=== PATIENT | female | born 1980 | race Caucasian/White ===

== ENCOUNTER 2018-02-25 06:12 | Day surgery (SDC) | payer BC ==
[~2018-02-25 06:12] MED LIST: CEFAZOLIN 2 GM/50 ML (PMX) 50 ML IVPB; LACTATED RINGER'S 1,000 ML IV*
[2018-02-25] MEDS ORDERED: PROPOFOL 20 ML (07:48)
[2018-02-25] MEDS ORDERED: ROCURONIUM 50 MG INJ (07:48)
[2018-02-25] MEDS ORDERED: FENTAnyl 50 MCG/ML VIAL (07:48)
[2018-02-25] MEDS ORDERED: MIDAZOLAM 1 MG/ML 2 ML INJ (07:48)
[2018-02-25] MEDS ORDERED: LIDOCAINE 1% (MDV) 20 ML INJ (07:49)
[2018-02-25] MEDS ORDERED: ROPIVACAINE 0.5 % 30 ML VIAL (07:53)
[2018-02-25] MEDS ORDERED: FAMOTIDINE 20 MG INJ (08:08)
[2018-02-25] MEDS ORDERED: ONDANSETRON 4 MG INJ (08:08)
[2018-02-25] MEDS ORDERED: DEXAMETHASONE 4 MG/ML 1 ML INJ (08:08)
[2018-02-25] MEDS ORDERED: CEFAZOLIN 1 GM INJ (08:08)
[2018-02-25] MEDS: BUPIVACAINE 0.25%/EPI (SDV) 30 ML INJ (08:50)
[2018-02-25] MEDS ORDERED: SUGAMMADEX SODIUM 200 MG/2 ML VIAL IV (09:06)
[2018-02-25] MEDS ORDERED: KETOROLAC 30 MG INJ (09:07)
[2018-02-25] MEDS ORDERED: HYDROmorphONE 1 MG/5 ML IV SYRINGE IV ×2 (10:00→10:07)
[2018-02-25] MEDS ORDERED: HYDROmorphONE 0.5 MG/0.5 ML SYG (10:03)
[2018-02-25] MEDS: HYDROmorphONE 1 MG/5 ML IV SYRINGE IV (10:12)
== END 2018-02-25 11:10 | disposition home or self-care (01) ==
LOC: SDS 06:12
DX: Z30.2 Encounter for sterilization (principal); N83.8 Other noninflammatory disorders of ovary, fallopian tube and broad ligament
CPT/HCPCS: 58662; 84703; 88304; 93005